=== PATIENT | female | born 1945 | race Asian ===

== ENCOUNTER 2018-10-31 07:43 | Day surgery (SDC) | payer MEDICARE, OTHER ==
--- NOTE | 2018-10-30 14:36 | PREOPHP ---
DATE OF ADMISSION: 10/31/2018 HISTORY OF PRESENT ILLNESS: This 73-year-old patient is admitted for elective cataract surgery of the left eye. The patient has had decreased vision over the past 1-1/2 years' time which has been progressive in nature. The patient denies prior history of eye disease or injury. SYSTEMIC HISTORY: Positive for osteoporosis and systemic hypertension. CURRENT MEDICATIONS: Include: 1. Amlodipine. 2. Injection for osteoporosis. ALLERGIES: THERE ARE NO KNOWN ALLERGIES. PHYSICAL EXAMINATION: The visual acuity best corrected is 20/80 in the right eye and 20/100 in the left eye. Slit lamp examination reveals anterior cortical and nuclear sclerotic cataracts present in both eyes. Applanation tonometry is 17 mm in the right eye and 15 mm in the left eye. Examination of the retina is within normal limits. DIAGNOSIS: Nuclear sclerotic cataract of both eyes. PLAN: Cataract extraction with lens implant, left eye. The risks and alternatives to the surgery have been discussed with the patient and patient has opted to proceed with surgery in hopes of improving visual acuity leading to greater ability to perform activities of daily living. Dictated By: PRASANNA GARRETT/SOPHIA Conf#: [id number] DID#: [id number] MTDD
[~2018-10-31] VITALS: Ht 147.3 cm; Wt 43.7 kg
[2018-10-31] VITALS (11 sets, daily range): BP systolic 119–139; BP diastolic 70–80; PULSE 62–71; RESP 16–23; Ht 147.3 cm; Wt 43.7 kg
[~2018-10-31 07:43] MED LIST: ALEN70TA5 PO
[2018-10-31] MEDS ORDERED: TROPICAMIDE 1% 15 ML OPH OPER SCH (08:00)
[2018-10-31] MEDS ORDERED: MOXIFLOXACIN 0.5% 3 ML OPH OPER SCH (08:00)
[2018-10-31] MEDS ORDERED: DICLOFENAC 0.1% 2.5 ML OPH OPER SCH (08:00)
[2018-10-31] MEDS ORDERED: SOD CHLORIDE 0.9% 1,000 ML IV SCH (08:00)
[2018-10-31] MEDS ORDERED: CYCLOPENTOLATE/PHENYLEPH 2 ML OPH OPER SCH (08:00)
[2018-10-31] MEDS ORDERED: CALC500T91 PO (09:18)
[2018-10-31] MEDS ORDERED: DENO60DI SQ (09:19)
[2018-10-31] MEDS ORDERED: AMLO-145 PO (09:19)
[2018-10-31] MEDS ORDERED: MULT-542 PO (09:20)
--- NOTE | 2018-10-31 10:27 | PREAC ---
Date/Time of Note Date/Time of Note DATE: 10/31/18 TIME: 10:26 Anesthesia Eval and Record Evaluation Time Pre-Procedure Interview DATE: 10/31/18 TIME: 10:26 Age 73 Sex female NPO: 8 hrs Preoperative diagnosis Left eye cataract Planned procedure Cataract extraction with IOL implant Past Medical History Past Medical History: Includes Cardio: HTN Surgery & Anesthesia Issues No known issue Meds Anticoagulation: No Beta Nick within 24 hr: No Reason Beta Nick not given: Pt. not on B-Nick Reported Medications Multivitamin* (Daily Value*) 1 Each Tablet, 1 TAB PO DAILY, TAB 10/31/18 Denosumab (Prolia) 60 Mg/1 Ml Disp.syrin, 60 MG SQ DAILY 10/31/18 Amlodipine Besylate* (Amlodipine Besylate*) 5 Mg Tablet, 5 MG PO DAILY, #30 TAB 10/31/18 Calcium Carbonate ([id number]) 500 Mg Tablet, 1000 MG PO DAILY, TAB 10/31/18 Discontinued Reported Medications Alendronate Sodium* (Fosamax*) 70 Mg Tablet, 70 MG PO DAILY, TAB 07/19/14 Current Medications Diclofenac Sodium (Voltaren 0.1%) 1 drop Q5 MIN X 3 OPER Last administered on 10/31/18at 08:25; Admin Dose 1 DROP; Start 10/31/18 at 08:00 Tropicamide (Mydriacyl 1%) 1 drop Q5 MIN X3 OPER Last administered on 10/31/18at 08:24; Admin Dose 1 DROP; Start 10/31/18 at 08:00 Moxifloxacin HCl (Vigamox) 1 drop Q5 MIN X 3 OPER Last administered on 10/31/18at 08:24; Admin Dose 1 DROP; Start 10/31/18 at 08:00 Cyclopentolate/ Phenylephrine (Cyclomydril Oph 2 ml) 1 drop Q5 MIN X 3 OPER Last administered on 10/31/18at 08:24; Admin Dose 1 DROP; Start 10/31/18 at 08:00 Sodium Chloride 1,000 ml @ 25 mls/hr Q24H IV ; Start 10/31/18 at 08:00 Meds reviewed: Yes Allergies Coded Allergies: No Known Allergy (Unverified , 10/31/18) Allergies Reviewed: Yes Labs/Studies Labs Reviewed: Reviewed by anesthesiologist test: N/A Pre-procedure Exam Last vitals Vital Signs Date Temp Pulse Resp B/P (MAP) Pulse Ox O2 O2 Flow FiO2 Time Delivery Rate 10/31/18 98.0 71 16 139/76 99 Room Air 08:38 (97) Airway: Adequate mouth opening Mallampati: Mallampati I Teeth: Abnormal (Dentures) Lung: Normal Heart: Normal ASA Physical Status ASA physical status: 2 Emergency: None Planned Anesthetic General/MAC: MAC Planned Pain Management Parenteral pain med Pre-operative Attestations Prior to commencing anesthesia and surgery, the patient was re-evaluated, there was verification of: *The patient's identity *The results of appropriate recent lab work and preoperative vital signs *The above evaluation not changing prior to induction *Anesthetic plan, risk benefits, alternative and complications discussed with patient/family; questions answered; patient/family understands, accepts and wishes to proceed. RIO CANCHOLA MD Oct 31, 2018 10:27
[2018-10-31] MEDS ORDERED: TETRACAINE 0.5% 4 ML OPH LEFT EYE ONE (10:30)
[2018-10-31] MEDS ORDERED: LIDOCAINE 4% (MPF) 5 ML INJ INJ ONE (10:30)
[2018-10-31] MEDS ORDERED: PROPOFOL 20 ML ONE (10:40)
[2018-10-31] MEDS ORDERED: METOCLOPRAMIDE 10 MG INJ IV PRN (11:00)
[2018-10-31] MEDS ORDERED: OXYCODONE/ACETAMINOPHEN (5/325) TAB PO PRN ×2 (11:00)
[2018-10-31] MEDS ORDERED: MEPERIDINE 25 MG INJ IV PRN (11:00)
[2018-10-31] MEDS ORDERED: LABETALOL HCL 20MG INJ IV PRN (11:00)
[2018-10-31] MEDS ORDERED: MIDAZOLAM 1 MG/ML 2 ML INJ IV PRN (11:00)
[2018-10-31] MEDS ORDERED: DIPHENHYDRAMINE 50 MG INJ IV PRN (11:00)
[2018-10-31] MEDS ORDERED: FENTAnyl 50 MCG/ML VIAL IV PRN ×3 (11:00)
[2018-10-31] MEDS ORDERED: EPHEDrine SULFATE 50 MG/5 ML SYG IV PRN (11:00)
[2018-10-31] MEDS ORDERED: hydrALAzine 20 MG INJ IV PRN (11:00)
[2018-10-31] MEDS ORDERED: ONDANSETRON 4 MG INJ IV PRN (11:00)
[2018-10-31] MEDS ORDERED: CEFAZOLIN 1 GM INJ INJ ONE (11:01)
[2018-10-31] MEDS ORDERED: TETRACAINE 0.5% 4 ML OPH ONE (11:24)
[2018-10-31] MEDS ORDERED: CARBACHOL 0.01% 1.5 ML OPH INJ ONE (11:24)
[2018-10-31] MEDS ORDERED: NA HYALURONATE/CHONDROITIN 0.5 ML SYG ONE (11:24)
[2018-10-31] MEDS ORDERED: LIDOCAINE 4% (MPF) 5 ML INJ ONE (11:24)
--- NOTE | 2018-10-31 11:25 | SIPON ---
Date/Time of Note Date/Time of Note DATE: 10/31/18 TIME: 11:24 Operative Report Preoperative Diagnosis nuclear sclerotic cataract os Postoperative Diagnosis same Operation/Procedure Performed cataract extraction with lens implant os Surgeon Prasanna Garrett front end assistant none Anesthesia: MAC Estimated blood loss: none Transfusion Required none Specimen none Grafts/Implants posterior chamber lens implant Complications none PRASANNA GARRETT MD Oct 31, 2018 11:25
--- NOTE | 2018-10-31 11:45 | OPR ---
DATE OF OPERATION: 10/31/2018 PREOPERATIVE DIAGNOSIS: Nuclear sclerotic cataract, left eye. POSTOPERATIVE DIAGNOSIS: Nuclear sclerotic cataract, left eye. OPERATION PERFORMED: Cataract extraction with lens implant, left eye. ANESTHESIA: Local standby. ANESTHESIOLOGIST: Dr. Hui. PROCEDURE: The patient was brought to the operating room and placed on the table with an IV in place and the patient attached to an angle shear set up operator. Oxygen was given via face mask. After some intravenous sedation was administered, local anesthesia was given using Xylocaine 2% with epinephrine, mixed with Marcaine 0.5%. This was given in a lid block and retrobulbar injection. The patient was then prepped and draped in the usual sterile manner. A wire lid speculum was inserted between the lids of the left eye. A Superblade was used to enter th e anterior chamber at the corneoscleral limbus at the 10:30 o'clock position. A separate incision wa s made using a 3.0-mm keratome which entered the corneoscleral junction at the 12 o'clock position. Through this 3-mm opening, an irrigating cystotome was introduced into the anterior chamber. The dio mber was filled with Viscoat and an anterior capsulotomy was performed. Balanced salt solution was t hen used for hydrodissection of the lens. A phacoemulsification handpiece was then brought into the field and introduced into the anterior chamber. The lens nucleus was emulsified using a deep groove and cracking the nucleus into quadrants. Following this, each quadrant was aspirated and emulsified at the pupillary margin. After this was completed, the irrigation/aspiration handpiece was brought to the field, introduced in to the posterior chamber, and the lens cortical material was removed. When this was completed, addit ional Viscoat was injected into the anterior and posterior chambers. The 3-mm opening had its internal lips enlarged, and then the posterior chamber intraocular lens ventura uring 20.5 diopters ([employer] model LI61AO) was then injected into the posterior c hamber using the lens injector system. After the leading haptic was introduced into the capsular bag and the lens optic was present in the center of the eye, the injector was removed and the trailing h aptic was grasped with non-toothed forceps and introduced into the capsular fold superiorly. A [place] ey hook was then used to rotate the intraocular lens so that the lips were oriented in the horizontal meridian. One 10-0 nylon suture was placed across the wound. Prior to tying, the irrigation/aspiration handpiece was reintroduced into the anterior chamber to rem ove the Viscoat. Miochol was instilled to constrict the pupil, and then the 10-0 nylon suture was ti ed. The ends were cut short and then the knot was buried. Then, 0.5 mL of dexamethasone and 0.5 mL of Ancef were injected into the sub-Tenon space in the infer ior fornix. Ciloxan drops were then placed on the surface of the eye. The speculum was removed and a patch was applied. The patient then left the operating room in satisfactory condition. Dictated By: PRASANNA GARRETT/SOPHIA Conf#: [id number] DID#: [id number] CC: PRASANNA GARRETT MD;*EndCC*
--- NOTE | 2018-10-31 12:25 | PAC ---
Date/Time of Note Date/Time of Note DATE: 10/31/18 TIME: 12:25 Post-Anesthesia Notes Post-Anesthesia Note Last documented vital signs Vital Signs Date Temp Pulse Resp B/P (MAP) Pulse Ox O2 O2 Flow FiO2 Time Delivery Rate 10/31/18 64 19 132/71 98 Room Air 11:55 (91) 10/31/18 98.5 11:27 Activity: WNL Respiratory function: WNL Cardiovascular function: WNL Mental status: Baseline Pain reasonably controlled: Yes Hydration appropriate: Yes Nausea/Vomiting absent: Yes RIO CANCHOLA MD Oct 31, 2018 12:25
== END 2018-10-31 12:55 | disposition home or self-care (01) ==
LOC: SDS 07:43
PROVIDERS: ATTEND Ophthalmology
DX: H25.12 Age-related nuclear cataract, left eye (principal); I10 Essential (primary) hypertension
CPT/HCPCS: 66984; J0690; V2632